=== PATIENT | male | born 1945 | race Caucasian/White ===

== ENCOUNTER 2022-03-26 04:36 | Emergency (ER) | payer OTHER ==
[~2022-03-26] VITALS: Ht 175.3 cm; Wt 81.7 kg
[~2022-03-26 04:36] MED LIST: ALLERGY RELIE15.8 ML; ATOR40TA PO; CLOP75 PO; LISI20 PO; LOW DOSE ASPIRI81 MG; METO25ER PO; NAPR550 PO; OXYACE5T PO; TERB250 PO; VITAMIN D32000 UNIT PO
[2022-03-26 06:32] LABS: Influenza A, PCR NEGATIVE (NEGATIVE); Influenza B, PCR NEGATIVE (NEGATIVE); Resp Syncytial Virus, PCR NEGATIVE (NEGATIVE)
[2022-03-26 07:22] LABS: SARS-Cov-2 (COVID-19) PCR, MMC POSITIVE (NEGATIVE)
[2022-03-26] MEDS ORDERED: IBUP400 PO (07:48)
[2022-03-26] MEDS ORDERED: ACET500 PO (07:48)
[2022-03-26] MEDS ORDERED: ALBU90OI INH (07:48)
== END 2022-03-26 09:30 | disposition home or self-care (01) ==
LOC: ER 04:36
PROVIDERS: Emergency Medicine
DX: U07.1 COVID-19 (principal); I10 Essential (primary) hypertension; Z87.891 Personal history of nicotine dependence; Z79.82 Long term (current) use of aspirin; Z79.899 Other long term (current) drug therapy; Z28.310 Unvaccinated for COVID-19
CPT/HCPCS: 0241U; 71045; 94640; 94664; J1885

== ENCOUNTER 2025-04-14 08:07 | Day surgery (SDC) | payer OTHER ==
[~2025-04-14] VITALS: Ht 175.3 cm; Wt 81.3 kg
[~2025-04-14 08:07] MED LIST changes: +ACET500 PO; +ALBU90OI INH; +AMLO5 PO; +Balanced Salt Epinephrine Irrigation Solution 500 mL IR SCH; +IBUP400 PO; +MECL25 PO; +Moxifloxacin HCL 0.5 MG/0.1 ML 0.4MLSYR LEFTEYE SCH; +ONDA4ODT MM; +Ondansetron 4 MG SoluTab MM PRN; +PHENYLEPHRINE\\TROPICAMIDE\\TETRACAINE OPHTHALMIC DILATING SOLN LEFTEYE PRN; +PRAV20 PO; +Povidone-Iodine 450 DROP/30 ML Solution LEFTEYE SCH; +Povidone-Iodine 450 DROP/30 ML Solution ONE; +Tetracaine HCl/Pf 0.5% Opth Soln 4 ml ONE; +Triamcinolone Inj Susp 40 MG / ML 1ML Vial INJ SCH; +diazePAM 2 MG,diazePAM 5 MG PO SCH
--- NOTE | 2025-04-14 08:33 | NUR ---
04/14/25 0833 Meredith Wilkins PT REPORTS ANXIETY LEVEL AT 0/10 PRIOR TO ADMINISTRATION OF VALIUM 7MG PO @ 0832.
[2025-04-14] MEDS ORDERED: TIMO10T (08:39)
[2025-04-14] MEDS ORDERED: TOPROL XL50 M1 PO (08:39)
[2025-04-14] MEDS ORDERED: AMLODIPINE BES2.5 MG PO (08:39)
[2025-04-14] MEDS ORDERED: LATANOPROST2.5 M3 (08:40)
[2025-04-14] MEDS ORDERED: ROSUVASTATIN CAL5 MG PO (08:41)
[2025-04-14] MEDS ORDERED: TIMO.25OPS BOTHEYES (08:42)
[2025-04-14] MEDS ORDERED: Aspir 8181 MG PO (08:52)
--- NOTE | 2025-04-14 09:09 | NUR ---
04/14/25 0909 Lillie Tena VITALS AT 0907 BP: 193/85 P: 79 O2: 99% WITH 8 LITERS OF BLOW BY OXYGEN
[2025-04-14 09:29] VITALS: BP 181/79
--- NOTE | 2025-04-14 09:36 | NUR ---
04/14/25 0936 Lee Ann Olson 0930 - AMBULATED TO BATHRM CONTACT GUARD TO VOID SHORTLY AFTER TRANSFER TO CHAIR
== END 2025-04-14 09:51 | disposition home or self-care (01) ==
LOC: ORSCSDS 08:07
PROVIDERS: Student in an Organized Health Care Education/Training Program
PROC: 08RK3JZ Replacement of Left Lens with Synthetic Substitute, Percutaneous Approach (ICD-10-PCS; principal; 2025-04-14 09:30)
DX: H25.813 Combined forms of age-related cataract, bilateral (principal); H52.202 Unspecified astigmatism, left eye; H40.1130 Primary open-angle glaucoma, bilateral, stage unspecified; K21.9 Gastro-esophageal reflux disease without esophagitis; E78.5 Hyperlipidemia, unspecified; I10 Essential (primary) hypertension; Z87.891 Personal history of nicotine dependence; Z79.899 Other long term (current) drug therapy
CPT/HCPCS: A9270; V2632

== ENCOUNTER 2025-04-27 08:09 | Day surgery (SDC) | payer OTHER ==
[~2025-04-27] VITALS: Ht 175.3 cm; Wt 80.3 kg
[~2025-04-27 08:09] MED LIST changes: +AMLODIPINE BES2.5 MG PO; +Aspir 8181 MG PO; +LATANOPROST2.5 M3; -Moxifloxacin HCL 0.5 MG/0.1 ML 0.4MLSYR LEFTEYE SCH; +Moxifloxacin HCL 0.5 MG/0.1 ML 0.4MLSYR RIGHTEYE SCH; -PHENYLEPHRINE\\TROPICAMIDE\\TETRACAINE OPHTHALMIC DILATING SOLN LEFTEYE PRN; +PHENYLEPHRINE\\TROPICAMIDE\\TETRACAINE OPHTHALMIC DILATING SOLN RIGHTEYE PRN; -Povidone-Iodine 450 DROP/30 ML Solution LEFTEYE SCH; +Povidone-Iodine 450 DROP/30 ML Solution RIGHTEYE SCH; +ROSUVASTATIN CAL5 MG PO; +TIMO.25OPS BOTHEYES; +TIMO10T; +TOPROL XL50 M1 PO; -Triamcinolone Inj Susp 40 MG / ML 1ML Vial INJ SCH; -diazePAM 2 MG,diazePAM 5 MG PO SCH; +diazePAM 5 MG,diazePAM 2 MG PO SCH
--- NOTE | 2025-04-27 09:18 | NUR ---
04/27/25 0918 Lorna Cruz HR:73 BP:173/78 SPO2:99% ON 10L BLOW BY O2
[2025-04-27 09:42] VITALS: BP 172/82
== END 2025-04-27 09:54 | disposition home or self-care (01) ==
LOC: ORSCSDS 08:09
PROVIDERS: Student in an Organized Health Care Education/Training Program
PROC: 08RJ3JZ Replacement of Right Lens with Synthetic Substitute, Percutaneous Approach (ICD-10-PCS; principal; 2025-04-27 09:30)
DX: H25.811 Combined forms of age-related cataract, right eye (principal); H52.201 Unspecified astigmatism, right eye; Z96.1 Presence of intraocular lens; H40.1131 Primary open-angle glaucoma, bilateral, mild stage; I73.9 Peripheral vascular disease, unspecified; I10 Essential (primary) hypertension; E78.5 Hyperlipidemia, unspecified; I21.9 Acute myocardial infarction, unspecified; Z87.891 Personal history of nicotine dependence; F32.A Depression, unspecified; I25.10 Atherosclerotic heart disease of native coronary artery without angina pectoris; F41.9 Anxiety disorder, unspecified; Z79.82 Long term (current) use of aspirin; Z79.899 Other long term (current) drug therapy
CPT/HCPCS: A9270; V2632